=== PATIENT | female | born 1990 | race Caucasian/White ===

== ENCOUNTER 2017-03-16 12:42 | Emergency (ER) | payer MEDICAID ==
[~2017-03-16] VITALS: Ht 170.2 cm; Wt 111.4 kg
[2017-03-16 12:46] VITALS: BP 132/78; PULSE 110; TEMP 98.7
[2017-03-16] MEDS ORDERED: AMOXICILLIN 50500 MG PO (13:42)
== END 2017-03-16 14:08 | disposition home or self-care (01) ==
LOC: COL.ER 12:42
DX: J02.0 Streptococcal pharyngitis (principal); Z87.891 Personal history of nicotine dependence
CPT/HCPCS: J1885; J3360

== ENCOUNTER 2017-09-25 18:57 | Emergency (ER) | payer MEDICAID ==
[~2017-09-25] VITALS: Ht 170.2 cm; Wt 97.7 kg
[~2017-09-25 18:57] MED LIST: AMOXICILLIN 50500 MG PO
[2017-09-25 19:33] LABS: BASO # 0.1 (0.0-0.2); BASO % 0.5 % (0.0-2.0); EOS # 0.1 (0.0-0.7); EOS % 0.6 % (0-4.0); GRAN # 9.3 (1.4-6.5); GRAN % 87.8 % (42.2-75.2); HEMATOCRIT 41.9 % (37.0-47.0); HEMOGLOBIN 14.4 g/dl (12.5-16.0); LYMPH # 0.5 (1.2-3.4); LYMPH % 4.6 % (20.0-51.0); MEAN CELL VOLUME 90 fl (80.0-100.0); MEAN CORPUSCULAR HEMOGLOBIN 31 pg (27.0-31.0); MEAN CORPUSCULAR HGB CONC 34 g/dl (33.0-37.0); MEAN PLATELET VOLUME 8.8 fl (7.4-10.4); MONO # 0.7 (0.1-0.6); MONO % 6.2 % (1.7-9.3); PLATELET COUNT 267 K/mm3 (130-400); RED BLOOD COUNT 4.66 M/mm3 (4.10-5.30); WHITE BLOOD COUNT 10.6 K/mm3 (4.8-10.8)
[2017-09-25 19:40] LABS: ADJUSTED CALCIUM 8.9 mg/dL (8.4-10.2); ALBUMIN 4.6 gm/dL (3.5-5.0); BILIRUBIN,TOTAL 0.7 mg/dL (0.0-1.0); CALCIUM 9.4 mg/dL (8.4-10.2); CREATININE, serum 0.67 mg/dL (0.52-1.25); TOTAL PROTEIN 8.3 gm/dL (6.4-8.2)
[2017-09-25 20:12] LABS: COLLECTION METHOD CLEAN CATCH
[2017-09-25 20:17] LABS: HCG-QUALITATIVE URINE NEGATIVE
[2017-09-25 20:18] LABS: MUCOUS Present /lpf; PH 5 (5-8); SQUAMOUS EPITHELIAL 0-2 /hpf; URINE APPEARANCE Clear; URINE BACTERIA None Seen /hpf; URINE BILIRUBIN Negative (NEGATIVE); URINE BLOOD Negative (NEGATIVE); URINE COLOR Yellow; URINE GLUCOSE Negative (NEGATIVE); URINE KETONE Negative (NEGATIVE); URINE LEUKOCYTE ESTERASE Negative (NEGATIVE); URINE PROTEIN(semi-quant) Negative (NEGATIVE); URINE RBC 0-2 /hpf; URINE UROBILINOGEN Negative (NEGATIVE); URINE WBC 0-2 /hpf
[2017-09-25 20:30] LABS: INFLUENZA A NEGATIVE; INFLUENZA B NEGATIVE
[2017-09-25 22:41] VITALS: BP 113/70; PULSE 95; TEMP 99
== END 2017-09-25 22:41 | disposition home or self-care (01) ==
LOC: COL.ER 18:57
PROVIDERS: Emergency Medicine
DX: R51 Headache (principal); R55 Syncope and collapse; R10.9 Unspecified abdominal pain; F17.210 Nicotine dependence, cigarettes, uncomplicated
CPT/HCPCS: J0780; J1200; J1885; J7030; J7050; Q9967

== ENCOUNTER 2018-10-24 20:00 | Inpatient (IN) | payer MEDICAID ==
[2018-10-24] VITALS (12 sets, daily range): BP systolic 110–153; BP diastolic 51–88; PULSE 92–115; TEMP 97.6–98.1
[~2018-10-24] VITALS: Ht 167.6 cm; Wt 112.7 kg
--- NOTE | 2018-10-24 20:05 | NUR ---
G4L3. 39-6. Wheeled to LDR 4 with mother and daughter. Clean gown on. EFM and TOCO applied. Difficulty tracing FHR and monitors adjusted. SVE by Vinay RN 6, unable to tell effacement due to infant very high and ballotable. Vital signs completed. 2015: called and updated on pts status. See physican notification. Jasvir CASTILLO notified of pts request of epidural. 2034: IV started and labs obtained via IV site. LR bolus infusing and Pen G started. 2039: Jasvir CASTILLO at bedside for epidural. Procedure explained and pt very nervous for procedure due to past experiences. Questions and concerns answered. Pt assisted to edge of bed. Difficulty tracing FHR and contractions due to maternal position. Pulse ox applied and tracing well. 2100: Test dose administered by Jasvir CASTILLO. See anesthesia records. 2107: Pt assisted to wedge left position. Pt screaming and rolling in bed due to pain. at bedside for ultrasound, vertex presentation noted. 2110: SROM at this time during SVE per provider, large amount of meconium fluid noted. SVE 8/-2. [id number]: Difficulty tracing FHR due to maternals pain. RN remains at bedside holding and adjusting monitors. Pt still screaming out with contractions stating she is having a lot of pain in her left lower abdomen. Jasvir CASTILLO at bedside and dosing pt multiple times. 2140: at bedside. SVE unchanged per provier and scalp electrode applied without difficulties. Large amount of meconium fluid on exam. remains at nurses station and reviews FHR strip. 2145: Pt still very uncomfortable with contractions and yelling out. Jasvir CASTILLO remains at bedside with pt. Pt repositioned to right lateral position. 2204: Latham inserted without difficulties. Clear/yellow urine noted. SVE 8//-1. Pericare provided and pt repositioned. Pt still having pain with contractions and screaming out. Jasvir CASTILLO at bedside discussing pain managment options. Descision on replacing epidural made. 2219: Pt assisted to edge of bed for epidural placement. Pulse ox applied. See anesthesia records. 2229: Pt assisted to wedge left position and stating she is having a lot of pressure and feels like she needs to poop. SVE 8/90/0. 2236: Pt still uncomfortable and yelling out "the baby is coming". SVE C/+2. at nurses station and notified. Pt assisted to [facility]. 2240: Spontaneous vaginal delivery of viable female by . to mothers chest where dried and stimulated by Patrick nursery RN. Cord clamped X2 and cut by FOB. to warmer and care assumed by Patrick MORRELL. 2246: Spontaneous delivery of intact placenta by . Pitocin started at 333mus/hr per protocol. Lidocaine administered. Second degree laceration repaired by . Fundal messge completed. Pericare provided, pads changed and ice pack applied. Plan of care and safety precautions explained to pt and family who verbalize understanding. Cord stat sent due to insufficent care. UDS also sent. Call light within reach. Will continue to monitor.
[2018-10-24 20:46] LABS: BASO % 0.2 % (0.0-2.0); EOS # 0.1 (0.0-0.7); EOS % 0.7 % (0-4.0); GRAN # 6.3 (1.4-6.5); GRAN % 65.6 % (42.2-75.2); HEMATOCRIT 37.2 % (37.0-47.0); HEMOGLOBIN 12.5 g/dl (12.5-16.0); LYMPH # 2.4 (1.2-3.4); LYMPH % 25.4 % (20.0-51.0); MEAN CELL VOLUME 87 fl (80.0-100.0); MEAN CORPUSCULAR HEMOGLOBIN 29 pg (27.0-31.0); MEAN CORPUSCULAR HGB CONC 34 g/dl (33.0-37.0); MEAN PLATELET VOLUME 9.4 fl (7.4-10.4); MONO # 0.8 (0.1-0.6); MONO % 7.8 % (1.7-9.3); PLATELET COUNT 223 K/mm3 (130-400); RED BLOOD COUNT 4.27 M/mm3 (4.10-5.30); REDCELL DISTRIBUTION WIDTH-CV 14.4 % (11.5-14.5)
[2018-10-24 23:47] LABS: TRICYCLIC ANTIDEPRESS URINE NEGATIVE
[2018-10-25] VITALS (8 sets, daily range): BP systolic 107–140; BP diastolic 57–70; PULSE 81–108; TEMP 97.7–98.3
[2018-10-25] MEDS ORDERED: PRENATAL MVI PO (00:17)
--- NOTE | 2018-10-25 10:20 | NUR ---
Initial visit; Parents thanked Reinforcing Steel Worker Wire Mesh for offering congratulations and God's blessings for the of their daughter and for thanking them for choosing [facility].
[2018-10-26 07:14] VITALS: BP 120/71; PULSE 89; TEMP 97.3
[2018-10-26] MEDS ORDERED: MOTRIN 800800 MG/TAB PO (09:41)
[2018-10-26] MEDS ORDERED: PERCOCET 325 MG1 TA2 PO (09:42)
[2018-10-26 16:12] VITALS: BP 124/70; PULSE 105; TEMP 98.6
[2018-10-26 20:20] VITALS: BP 123/72; PULSE 86; TEMP 98.2
--- NOTE | 2018-10-26 22:20 | NUR ---
Pt to be discharged at this time. Discharge paperwork reviewed. Pt aware of follow up appointment. Discharge bag contents reviewed. Pt ambulated off unit with belongings and accompanied by staff.
== END 2018-10-26 22:20 | disposition home or self-care (01) | DRG 806 ==
LOC: OB 20:00 → LDR 20:00 → OB 10-25 03:21 → LDR 10-25 05:59 → OB 10-26 22:20
PROVIDERS: Student in an Organized Health Care Education/Training Program; ADMIT Obstetrics & Gynecology
PROC: 10E0XZZ Delivery of Products of Conception, External Approach (ICD-10-PCS; principal; 2018-10-24)
PROC: 0KQM0ZZ Repair Perineum Muscle, Open Approach (ICD-10-PCS; 2018-10-24)
DX: O70.1 Second degree perineal laceration during delivery (principal); O71.7 Obstetric hematoma of pelvis; Z37.0 Single live birth; Z3A.39 39 weeks gestation of pregnancy; O99.824 Streptococcus B carrier state complicating childbirth; O99.344 Other mental disorders complicating childbirth; F41.8 Other specified anxiety disorders; O76 Abnormality in fetal heart rate and rhythm complicating labor and delivery; O77.0 Labor and delivery complicated by meconium in amniotic fluid
CPT/HCPCS: J2540; J2590; J3010; J7120

== ENCOUNTER 2019-03-30 09:32 | Emergency (ER) | payer MEDICAID ==
[~2019-03-30] VITALS: Ht 170.2 cm; Wt 97.7 kg
[~2019-03-30 09:32] MED LIST changes: +MOTRIN 800800 MG/TAB PO; +PERCOCET 325 MG1 TA2 PO; +PRENATAL MVI PO
[2019-03-30 09:41] VITALS: TEMP 98.1
[2019-03-30 10:02] LABS: COLLECTION METHOD CLEAN CATCH
[2019-03-30 10:08] LABS: PH 7 (5-8); SQUAMOUS EPITHELIAL None Seen /hpf; URINE APPEARANCE Clear; URINE BACTERIA None Seen /hpf; URINE BILIRUBIN Negative (NEGATIVE); URINE BLOOD Negative (NEGATIVE); URINE COLOR Straw; URINE GLUCOSE Negative (NEGATIVE); URINE KETONE Negative (NEGATIVE); URINE LEUKOCYTE ESTERASE Negative (NEGATIVE); URINE NITRATE Negative (NEGATIVE); URINE PROTEIN(semi-quant) Negative (NEGATIVE); URINE RBC None Seen /hpf; URINE UROBILINOGEN Negative (NEGATIVE)
[2019-03-30 10:16] LABS: BASO % 0.4 % (0.0-2.0); EOS # 0.1 (0.0-0.7); EOS % 1.8 % (0-4.0); GRAN # 4.7 (1.4-6.5); GRAN % 63.9 % (42.2-75.2); HEMATOCRIT 38.8 % (37.0-47.0); HEMOGLOBIN 13.1 g/dl (12.5-16.0); LYMPH % 26.9 % (20.0-51.0); MEAN CELL VOLUME 89 fl (80.0-100.0); MEAN CORPUSCULAR HEMOGLOBIN 30 pg (27.0-31.0); MEAN CORPUSCULAR HGB CONC 34 g/dl (33.0-37.0); MEAN PLATELET VOLUME 8.8 fl (7.4-10.4); MONO # 0.5 (0.1-0.6); MONO % 6.9 % (1.7-9.3); PLATELET COUNT 230 K/mm3 (130-400); RED BLOOD COUNT 4.37 M/mm3 (4.10-5.30)
[2019-03-30 11:25] VITALS: BP 121/79; PULSE 98
== END 2019-03-30 11:25 | disposition home or self-care (01) ==
LOC: COL.ER 09:32
PROVIDERS: Family Medicine
DX: O26.891 Other specified pregnancy related conditions, first trimester (principal); R33.9 Retention of urine, unspecified; Z87.891 Personal history of nicotine dependence; Z3A.00 Weeks of gestation of pregnancy not specified

== ENCOUNTER 2019-04-01 11:52 | Emergency (ER) | payer MEDICAID ==
[~2019-04-01] VITALS: Ht 170.2 cm; Wt 97.7 kg
[2019-04-01 12:20] VITALS: BP 136/86; TEMP 97.8
[2019-04-01 16:07] LABS: COLLECTION METHOD CLEAN CATCH
[2019-04-01 16:32] LABS: MUCOUS Present /lpf; PH 6 (5-8); SQUAMOUS EPITHELIAL None Seen /hpf; URINE APPEARANCE Clear; URINE BACTERIA None Seen /hpf; URINE BILIRUBIN Negative (NEGATIVE); URINE BLOOD 3+ (NEGATIVE); URINE COLOR Yellow; URINE GLUCOSE Negative (NEGATIVE); URINE KETONE Negative (NEGATIVE); URINE LEUKOCYTE ESTERASE Trace (NEGATIVE); URINE NITRATE Negative (NEGATIVE); URINE PROTEIN(semi-quant) Negative (NEGATIVE); URINE RBC 20-50 /hpf; URINE UROBILINOGEN Negative (NEGATIVE)
[2019-04-01 17:05] VITALS: PULSE 84
== END 2019-04-01 17:05 | disposition home or self-care (01) ==
LOC: COL.ER 11:52
PROVIDERS: Emergency Medicine
DX: O26.892 Other specified pregnancy related conditions, second trimester (principal); O99.332 Smoking (tobacco) complicating pregnancy, second trimester; O99.322 Drug use complicating pregnancy, second trimester; R31.9 Hematuria, unspecified; F17.210 Nicotine dependence, cigarettes, uncomplicated; F12.90 Cannabis use, unspecified, uncomplicated; Z3A.20 20 weeks gestation of pregnancy

== ENCOUNTER 2019-09-21 10:52 | Outpatient (CLI) | payer MEDICAID ==
[2019-09-21] VITALS (17 sets, daily range): BP systolic 120–182; BP diastolic 69–97; PULSE 92–121; TEMP 97.5–97.8
--- NOTE | 2019-09-21 11:00 | NUR ---
Pt arrives on unit ambulatory with oldest daughter. States painful contractions that began x 1 hour while eating at [employer]. Denies vaginal bleeding, LOF and reports GFM. Changed into clean gown. EFM and toco applied. VSS. Pt has minimal care. Dr. White notified. See physician notification. Admission assessment completed. IV started in LH. 1119-Dr. White at bedside. Bedside US confirms vertex position.
--- NOTE | 2019-09-21 11:15 | NUR ---
Pt leaves unit ambulatory. Pt using [facility] for transportation.
[2019-09-21] MEDS ORDERED: PRENATAL TABLET PO (11:25)
[2019-09-21 11:48] LABS: BASO % 0.2 % (0.0-2.0); EOS # 0.1 (0.0-0.7); EOS % 0.5 % (0-4.0); GRAN # 11.7 (1.4-6.5); GRAN % 78.5 % (42.2-75.2); HEMATOCRIT 38.5 % (37.0-47.0); HEMOGLOBIN 12.6 g/dl (12.5-16.0); LYMPH # 2.2 (1.2-3.4); MEAN CELL VOLUME 85 fl (80.0-100.0); MEAN CORPUSCULAR HEMOGLOBIN 28 pg (27.0-31.0); MEAN CORPUSCULAR HGB CONC 33 g/dl (33.0-37.0); MEAN PLATELET VOLUME 9.4 fl (7.4-10.4); MONO # 0.8 (0.1-0.6); MONO % 5.1 % (1.7-9.3); PLATELET COUNT 248 K/mm3 (130-400); RED BLOOD COUNT 4.51 M/mm3 (4.10-5.30); REDCELL DISTRIBUTION WIDTH-CV 14.7 % (11.5-14.5)
[2019-09-21 12:01] LABS: ALBUMIN 3.4 gm/dL (3.5-5.0); BILIRUBIN,TOTAL 0.3 mg/dL (0.0-1.0); CALCIUM 9.2 mg/dL (8.4-10.2); CREATININE, serum 0.57 (0.52-1.25); TOTAL PROTEIN 7.2 gm/dL (6.4-8.2)
--- NOTE | 2019-09-21 12:10 | NUR ---
Dr. White remains at nurses station and reviews FHR and contractions on monitor. Patient moaning during contractions. Verbal order to give 1st dose of Pen G but do not admit patient at this time.
[2019-09-21 12:14] LABS: TRICYCLIC ANTIDEPRESS URINE NEGATIVE
--- NOTE | 2019-09-21 13:00 | NUR ---
Dr. White at nurses station, reviews FHR and contractions on monitor. Patient continues to breath heavily through contractions. Vital signs reported as BP elevated. Labs reviewed. 1310: Dr. White in patient room and goes over labs with patient including positive drug screen. Patient tearful. SVE by Dr. White 2-/-3.
[2019-09-21 13:32] LABS: COLLECTION METHOD CLEAN CATCH
[2019-09-21 14:00] LABS: MUCOUS Present /lpf; PH 5 (5-8); URINE APPEARANCE Cloudy; URINE BACTERIA Rare /hpf; URINE BILIRUBIN Negative (NEGATIVE); URINE BLOOD 1+ (NEGATIVE); URINE COLOR Yellow; URINE GLUCOSE Negative (NEGATIVE); URINE KETONE Negative (NEGATIVE); URINE LEUKOCYTE ESTERASE 2+ (NEGATIVE); URINE NITRATE Positive (NEGATIVE); URINE PROTEIN(semi-quant) 2+ (NEGATIVE); URINE UROBILINOGEN Negative (NEGATIVE); URINE WBC >50 /hpf
--- NOTE | 2019-09-21 14:30 | NUR ---
Patient states she is feeling better.
--- NOTE | 2019-09-21 15:18 | NUR ---
1518: SVE 2-3/50/-3. Patient states she is feeling better and the contractions are not as strong. fiscal services manager is at nurses station and will come in after SVE.
--- NOTE | 2019-09-21 15:50 | NUR ---
1550: INT removed. FHR and contraction monitors removed. Patient resting in bed. GBS swab collected and sent to lab. Patient discharge instructions reviewed. Reviewed with patient to return to hospital with vaginal bleeding, leaking of fluid, decreased movement or stronger contractions or pain. kick count reviewed with patient. Patient verbalizes understanding. Patient ambulates off unit.
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
--- NOTE | 2019-09-22 15:14 | NUR ---
hot iron worker contacted Dr White's nurse and advised of and faxed substance abouse treatment options for patient. Nurse advised that they have only seen patient 1 time during her .
== END 2019-09-21 16:15 | disposition home or self-care (01) ==
LOC: LDRO 10:52 → LDR 10:53 → LDRO 10:53 → LDR 11:56 → LDRO 11:56 → LDR 12:03 → LDRO 12:03 → LDR 16:15
PROVIDERS: Obstetrics & Gynecology
DX: O99.323 Drug use complicating pregnancy, third trimester (principal); F15.90 Other stimulant use, unspecified, uncomplicated; Z3A.37 37 weeks gestation of pregnancy
CPT/HCPCS: J2540; J7120

== ENCOUNTER 2019-09-25 01:58 | Inpatient (IN) | payer MEDICAID ==
[~2019-09-25] VITALS: Ht 167.6 cm; Wt 105.5 kg
[2019-09-25] VITALS (45 sets, daily range): BP systolic 87–166; BP diastolic 47–99; PULSE 79–121; TEMP 97–98.5
[~2019-09-25 01:58] MED LIST changes: +PRENATAL TABLET PO
--- NOTE | 2019-09-25 02:05 | NUR ---
G5L4. 38-1. Ambulatory to LDR 5. Clean gown on. EFM and TOCO explained and applied. Pt tearful and breathing through contractions. Pt states contractions started 25mins ago but states she does not know if they are contractions or gas. Pt reports pain every couple of minutes. Denies leaking of fluids or vaginal bleeding. Reports she has not felt baby move today. SVE /-2, ballotable. Pt denies any complications during this but states she was here a couple days ago and she had a positive drug screen for meth and marijuana. Pt states she has not used either drugs for 2 weeks. Educated pt on plan of care and pt verbalized understanding. Call light within reach.
--- NOTE | 2019-09-25 03:12 | NUR ---
SVE Unchanged. Pt states contractions have spaced out but are the same intensity. Pt continues to breath through contractions. 0314: Pt off monitors to try and void for UDS. Pt aware. 0318: updated on pt and her status. Orders received. See physican notification. Pt updated on plan of care. Pt unable to void. Ice water given to pt and encouraged to drink plenty of fluids.
[2019-09-25 03:57] LABS: COLLECTION METHOD CLEAN CATCH
[2019-09-25 04:00] LABS: BASO % 0.3 % (0.0-2.0); EOS # 0.1 (0.0-0.7); EOS % 0.4 % (0-4.0); GRAN # 8.3 (1.4-6.5); GRAN % 71.5 % (42.2-75.2); HEMATOCRIT 38.5 % (37.0-47.0); HEMOGLOBIN 12.7 g/dl (12.5-16.0); LYMPH # 2.4 (1.2-3.4); LYMPH % 20.9 % (20.0-51.0); MEAN CELL VOLUME 84 fl (80.0-100.0); MEAN CORPUSCULAR HEMOGLOBIN 28 pg (27.0-31.0); MEAN CORPUSCULAR HGB CONC 33 g/dl (33.0-37.0); MEAN PLATELET VOLUME 9.7 fl (7.4-10.4); MONO # 0.7 (0.1-0.6); MONO % 6.3 % (1.7-9.3); PLATELET COUNT 228 K/mm3 (130-400); RED BLOOD COUNT 4.56 M/mm3 (4.10-5.30); REDCELL DISTRIBUTION WIDTH-CV 14.4 % (11.5-14.5)
[2019-09-25 04:06] LABS: MUCOUS Present /lpf; PH 6 (5-8); SQUAMOUS EPITHELIAL 0-2 /hpf; URINE APPEARANCE Hazy; URINE BACTERIA Many /hpf; URINE BILIRUBIN Negative (NEGATIVE); URINE BLOOD 1+ (NEGATIVE); URINE COLOR Yellow; URINE GLUCOSE Negative (NEGATIVE); URINE KETONE Negative (NEGATIVE); URINE LEUKOCYTE ESTERASE 1+ (NEGATIVE); URINE NITRATE Negative (NEGATIVE); URINE PROTEIN(semi-quant) Negative (NEGATIVE); URINE UROBILINOGEN Negative (NEGATIVE); URINE WBC 20-50 /hpf
[2019-09-25 04:10] LABS: ALBUMIN 3.7 gm/dL (3.5-5.0); BILIRUBIN,TOTAL 0.3 mg/dL (0.0-1.0); CREATININE, serum 0.55 (0.52-1.25); TOTAL PROTEIN 7.5 gm/dL (6.4-8.2)
[2019-09-25 04:20] LABS: TRICYCLIC ANTIDEPRESS URINE NEGATIVE
--- NOTE | 2019-09-25 04:20 | NUR ---
SVE 5-6/80/-2 and continues to breath through contractions. Labs resulted. 0428: updated on pt states, admit orders received. See physican notification. Pt updated on new orders and requesting epidural. 0432: Sreedhar CASTILLO notified. 0440: IV started and LR bolus infusing without difficulties. 0500: Sreedhar CASTILLO at bedside for epidural. Pt assisted to EOB. Difficulty tracing FHR and contractions due to maternal position. Pulse ox applied and tracing well. 0510: Single shot administered by Sreedhar CASTILLO. 0512: Test dose administered by Sreedhar CASTILLO. See physican notification. 0520: Pt assisted to wedge left position. Pt states she feels urge to void. Latham placed without difficulties. 0553: Pt BP 87/47. Ephedrine 10mg IV administered per orders. Recheck BP 126/61.
--- NOTE | 2019-09-25 10:26 | NUR ---
1026-PIT STARTED PER MD VERBAL ORDER PER PROTOCOL SEE EMAR
--- NOTE | 2019-09-25 11:20 | NUR ---
1120-PATIENT FEELING MORE PRESSURE WITH CONTRACTIONS. SVE 7-8/100/-1. REPOSITOINED WL, 1125-PATIENT REPORTS SUDDEN "STRONG PRESSURE" SVE 8-9/100/-1 REPOSITIONED BACK HF. ENCOUARGED USE OF EPIDURAL OFFICE MACHINES SALES REPRESENTATIVE FOR BREAKTHROUGH PAIN. 1131- UPDATED, SEE PHYSICIAN NOTIFICATION.
--- NOTE | 2019-09-25 11:55 | NUR ---
1155-Dr. White on unit. Reviews FHR monitor and deep recurrent variables in FHR down to 70-80bpm. SVE by MD. MD has patient bear down with contraction. unable to push away cervix. MD orders to continue to labor patient and increase pitocin per protocol. Dr. White remains on unit. 1210-Deep recurrent varaible decels in FHR down to 70bpm with 60 second return to baseline. Dr. White to patient room, FHR back up to baseline. reviews strip and gives VO to continue to monitor, MD remains on unit. 1232-SVE by this RN. Patient groaning with contraction pressure. 10/100/0, to room. Set up for delivery
--- NOTE | 2019-09-25 12:35 | NUR ---
1235-MD at bed. Patient begins pushing through contraction. Moves vertex well. 1236-Spontaneous delivery of head, nuchal x1 reduced by Dr. White. Patient continues to push with contraction. Spontaneous delivery of infant body by MD. Viable male infant clamped and cord cut by MD. mouth and nose bulb suctiond by MD. Infant to mothers abdomen, care of assumed by PORSCHE Nagel. Apgars 03/23/. Cord blood collected and Cord gasses collected and sent to lab. 1242-Spontaneous delivery of intact placenta by MD. Fundal massage firm, Lochia WNL. Pitocin bolus per MD order and protocol. Perineum intact. Windy care provided. ice to perineum. Updated on plan of care and safety.
--- NOTE | 2019-09-26 06:39 | NUR ---
Report recieved. Pt sleeping at this time.
[2019-09-26 07:30] VITALS: BP 130/82; PULSE 86; TEMP 97.5
[2019-09-26] MEDS ORDERED: MOTRIN 800800 MG/TAB PO (08:26)
[2019-09-26] MEDS ORDERED: PERCOCET 325 MG1 TA2 PO (08:27)
--- NOTE | 2019-09-26 09:00 | NUR ---
Mother to bedside with three of pt's children. Pt requests for mother to recieved the second ID band. Bands verified and mother provided an ID band.
--- NOTE | 2019-09-26 09:15 | NUR ---
Social Work to bedside at this time.
--- NOTE | 2019-09-26 09:29 | NUR ---
Initial visit; Patient thanked Utility Aide for offering congratulations and God's blessings for the of her son. Utility Aide thanked family for choosing [facility].
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
[2019-09-26 12:00] VITALS: BP 116/75; PULSE 76; TEMP 98
[2019-09-26 16:37] VITALS: BP 125/63; PULSE 80; TEMP 98.8
[2019-09-26 21:09] VITALS: BP 131/75; PULSE 86; TEMP 98.1
[2019-09-27 08:00] VITALS: BP 134/86; PULSE 94; TEMP 97.8
== END 2019-09-27 13:15 | disposition home or self-care (01) | DRG 807 ==
LOC: LDRO 01:58 → LDR 02:05 → LDRO 04:30 → OB 04:30 → LDR 04:30 → OB 16:50
PROVIDERS: Obstetrics & Gynecology; ADMIT Obstetrics & Gynecology
PROC: 10E0XZZ Delivery of Products of Conception, External Approach (ICD-10-PCS; principal; 2019-09-25)
PROC: 10907ZC Drainage of Amniotic Fluid, Therapeutic from Products of Conception, Via Natural or Artificial Opening (ICD-10-PCS; 2019-09-25)
DX: O99.324 Drug use complicating childbirth (principal); Z37.0 Single live birth; Z3A.38 38 weeks gestation of pregnancy; O69.81X0 Labor and delivery complicated by cord around neck, without compression, not applicable or unspecified; F15.90 Other stimulant use, unspecified, uncomplicated; Z23 Encounter for immunization
CPT/HCPCS: J2405; J2590; J2795; J7120

== ENCOUNTER → 2020-11-03 | Outpatient (CLI) | payer MEDICAID ==
[~2020-11-03] MED LIST changes: +IBU800 M1 PO; +MELATIN 3 MG-11 TAB PO
== END ==
LOC: ZCOL.LAB 11:14
DX: Z20.822 Contact with and (suspected) exposure to COVID-19 (principal)

== ENCOUNTER 2020-11-05 00:12 | Inpatient (IN) | payer MEDICAID ==
[~2020-11-05] VITALS: Ht 170.2 cm; Wt 125.0 kg
[2020-11-05] VITALS (24 sets, daily range): BP systolic 97–167; BP diastolic 47–92; PULSE 86–122; TEMP 98–98.5
[~2020-11-05 00:12] MED LIST changes: -IBU800 M1 PO; -MELATIN 3 MG-11 TAB PO
--- NOTE | 2020-11-05 00:15 | NUR ---
Pt arrived on the unit via wheelchair with complaints of contractions and possible SROM. EFM and toco monitors started. SVE by this RN - with negative amnio-trace. Pt rollilng around in bed and crying in pain. Spoke with Dr. Cooney. Information, FHR tracing and SVE reviewed. Orders for labor admission received. Plan of care reviewed with pt.
[2020-11-05] MEDS ORDERED: MELATIN 3 MG-11 TAB PO (00:38)
[2020-11-05 00:47] LABS: BASO % 0.3 % (0.0-2.0); EOS # 0.1 (0.0-0.7); EOS % 0.5 % (0-4.0); GRAN # 7.1 (1.4-6.5); GRAN % 69.5 % (42.2-75.2); HEMOGLOBIN 11.7 g/dl (12.5-16.0); LYMPH # 2.3 (1.2-3.4); MEAN CELL VOLUME 81 fl (80.0-100.0); MEAN CORPUSCULAR HEMOGLOBIN 26 pg (27.0-31.0); MEAN CORPUSCULAR HGB CONC 32 g/dl (33.0-37.0); MONO # 0.6 (0.1-0.6); MONO % 6.2 % (1.7-9.3); PLATELET COUNT 169 K/mm3 (130-400); REDCELL DISTRIBUTION WIDTH-CV 15.8 % (11.5-14.5)
[2020-11-05 00:48] LABS: HEMATOCRIT 36.5 % (37.0-47.0)
[2020-11-05 00:59] LABS: ALBUMIN 3.3 gm/dL (3.5-5.0); BILIRUBIN,TOTAL 0.3 mg/dL (0.0-1.0); CALCIUM 8.4 mg/dL (8.4-10.2); CREATININE, serum 0.47 (0.52-1.25); POTASSIUM 3.9 mmol/L (3.4-5.0); TOTAL PROTEIN 6.8 gm/dL (6.4-8.2)
--- NOTE | 2020-11-05 01:03 | NUR ---
0103- ANNA Quiroz at the bedside for epidural placement. Pt sitting up on the edge of the bed. Difficult tracing FHR due to maternal position. 0112- Single shot done per ANNA Quiroz. See anesthesia paperwork for details. 0114- Test dose done per ANNA Quiroz. See anesthesia paperwork for details. 0120- Assisted pt back to supine position with left wedge. EFM and toco monitors adjusted.
[2020-11-05 01:19] LABS: COLLECTION METHOD CLEAN CATCH
[2020-11-05 01:27] LABS: MUCOUS Present /lpf; PH 6 (5-8); URINE APPEARANCE Hazy; URINE BACTERIA None Seen /hpf; URINE BILIRUBIN Negative (NEGATIVE); URINE BLOOD 1+ (NEGATIVE); URINE COLOR Yellow; URINE GLUCOSE Negative (NEGATIVE); URINE KETONE Negative (NEGATIVE); URINE LEUKOCYTE ESTERASE Trace (NEGATIVE); URINE NITRATE Negative (NEGATIVE); URINE PROTEIN(semi-quant) Negative (NEGATIVE); URINE UROBILINOGEN Negative (NEGATIVE)
[2020-11-05 01:56] LABS: TRICYCLIC ANTIDEPRESS URINE NEGATIVE
--- NOTE | 2020-11-05 03:30 | NUR ---
Difficult tracing FHR due to maternal position and movement with emesis.
--- NOTE | 2020-11-05 03:45 | NUR ---
Difficult tracing FHR due to maternal position and frequent movement with emesis.
--- NOTE | 2020-11-05 04:40 | NUR ---
0440- Dr. Cooney at the bedside. JUSTINA HERRON with AROM for minimal amount of fluid.
--- NOTE | 2020-11-05 05:06 | NUR ---
0506- SVE by this RN /-2. Pushing started. 0518- Dr. Cooney at the bedside. Pt set up for delivery. 0523- of viable female . placed on mom's abdomen. Cords clamped and cut. Care of the given to nursery RN at the bedside. 0525- of placenta and use of manual extraction. See MD notes for details. 0528- Pitocin started at 333ml/hr per orders and protocol. Fundus firm and lochia WNL.
--- NOTE | 2020-11-05 10:21 | NUR ---
Initial visit attempt; Patient out of room, Art Instructor left card of congratulations and God's blessings for the of her daughter and information regarding the availability of spiritual care at our hospital.
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
--- NOTE | 2020-11-05 16:07 | NUR ---
DCF at bedside.
[2020-11-06 00:50] VITALS: BP 129/73; PULSE 79; TEMP 98
[2020-11-06 05:50] VITALS: BP 121/65; PULSE 82; TEMP 98
[2020-11-06 07:25] VITALS: BP 138/95; PULSE 96; TEMP 97.8
--- NOTE | 2020-11-06 07:30 | NUR ---
Rests in bed, alert. Request pain medication. States having cramping. Percocet 5/325 two, ibuprofen 800 mg given per request and as ordered.
--- NOTE | 2020-11-06 11:30 | NUR ---
Rests in bed, alert. Denies any needs at this time.
[2020-11-06 15:45] VITALS: BP 125/71; PULSE 76; TEMP 98.4
[2020-11-06 21:00] VITALS: BP 138/85; PULSE 77; TEMP 98.6
[2020-11-07 07:15] VITALS: BP 140/75; PULSE 80; TEMP 98
--- NOTE | 2020-11-07 07:30 | NUR ---
Sits up in bed, alert. Request pain medication. Percocet 5/325 mg two given per request and as ordered.
--- NOTE | 2020-11-07 08:45 | NUR ---
Rests in bed, alert. Ibuprofen 800 mg given as ordered and per request.
[2020-11-07] MEDS ORDERED: IBU800 M1 PO (10:27)
[2020-11-07 16:00] VITALS: BP 140/76; PULSE 80; TEMP 98.1
== END 2020-11-07 17:20 | disposition home or self-care (01) | DRG 806 ==
LOC: LDRO 00:12 → OB 00:30 → LDR 00:30 → OB 06:57
PROVIDERS: Obstetrics & Gynecology; ADMIT Obstetrics & Gynecology
PROC: 10E0XZZ Delivery of Products of Conception, External Approach (ICD-10-PCS; principal; 2020-11-05)
PROC: 10D17Z9 Manual Extraction of Products of Conception, Retained, Via Natural or Artificial Opening (ICD-10-PCS; 2020-11-05)
PROC: 0KQM0ZZ Repair Perineum Muscle, Open Approach (ICD-10-PCS; 2020-11-05)
DX: O48.0 Post-term pregnancy (principal); O99.324 Drug use complicating childbirth; Z37.0 Single live birth; O99.344 Other mental disorders complicating childbirth; O99.824 Streptococcus B carrier state complicating childbirth; Z3A.40 40 weeks gestation of pregnancy; F12.90 Cannabis use, unspecified, uncomplicated; F41.8 Other specified anxiety disorders
CPT/HCPCS: J0690; J2405; J2540; J2590; J2795; J7120

== ENCOUNTER 2022-08-08 10:39 | Emergency (ER) | payer MEDICAID ==
[~2022-08-08] VITALS: Ht 170.2 cm; Wt 125.0 kg
[~2022-08-08 10:39] MED LIST changes: +IBU800 M1 PO; +MELATIN 3 MG-11 TAB PO
[2022-08-08 10:48] VITALS: TEMP 98.1
[2022-08-08 11:31] LABS: BASO % 0.2 % (0.0-2.0); EOS % 0.3 % (0.0-4.0); GRAN # 7.3 K/mm3 (1.4-6.5); GRAN % 82.4 % (42.2-75.2); HEMATOCRIT 38.6 % (37.0-47.0); HEMOGLOBIN 12.4 g/dl (12.5-16.0); LYMPH % 10.8 % (20.0-51.0); MEAN CELL VOLUME 89 fl (80.0-100.0); MEAN CORPUSCULAR HEMOGLOBIN 29 pg (27-31); MEAN CORPUSCULAR HGB CONC 32 g/dl (33.0-37.0); MEAN PLATELET VOLUME 8.9 fl (7.4-10.4); MONO # 0.5 K/mm3 (0.1-0.6); PLATELET COUNT 249 K/mm3 (130-400); RED BLOOD COUNT 4.33 M/mm3 (4.10-5.30); REDCELL DISTRIBUTION WIDTH-CV 12.7 % (11.5-14.5)
[2022-08-08 12:01] LABS: ALBUMIN 3.1 gm/dL (3.5-5.0); BILIRUBIN,TOTAL 0.4 mg/dL (0.2-1.2); CALCIUM 8.7 mg/dL (8.4-10.2); CREATININE, serum 0.62 mg/dL (0.57-1.11); POTASSIUM 3.7 mmol/L (3.5-4.5); TOTAL PROTEIN 7.4 gm/dL (6.2-8.1)
[2022-08-08 12:12] LABS: C-REACTIVE PROTEIN 6.21 mg/dL (0.00-0.50)
[2022-08-08] MEDS ORDERED: MEDROL 4MG DOSPA4 MG PO (14:26)
[2022-08-08] MEDS ORDERED: NORCO 325 MG-51 TAB PO (14:27)
[2022-08-08 14:29] VITALS: BP 114/62; PULSE 81
== END 2022-08-08 14:42 | disposition home or self-care (01) ==
LOC: COL.ER 10:39
PROVIDERS: Physician Assistant
DX: O99.891 Other specified diseases and conditions complicating pregnancy (principal); M25.551 Pain in right hip; M54.17 Radiculopathy, lumbosacral region; Z28.310 Unvaccinated for COVID-19; Z3A.10 10 weeks gestation of pregnancy
CPT/HCPCS: J2270; J2360; J3010